=== PATIENT | female | born 1990 | race Two or more races ===

== ENCOUNTER 2024-05-23 07:59 | Emergency (ER) | payer OTHER ==
[~2024-05-23] VITALS: Ht 175.3 cm; Wt 70.8 kg
[2024-05-23] MEDS ORDERED: LEVOTHYROXINE50 MCG PO (08:56)
[2024-05-23] MEDS ORDERED: IRON236 MG PO (08:56)
[2024-05-23 10:51] LABS: HEMATOCRIT 34.9 % (36.0-45.00); MEAN CELL VOLUME 88.8 fL (80.00-100.00); MEAN CORPUSCULAR HEMOGLOBIN 30.6 pg (27.00-32.0); MEAN CORPUSCULAR HGB CONC 34.4 g/dl (32.0-36.0); PLATELET COUNT 373 K/uL (150-450); RED BLOOD COUNT 3.93 M/uL (4.00-6.00); RED CELL DISTRIBUTION WIDTH 13.4 % (11.5-14.5)
[2024-05-23 10:56] LABS: ERYTHROCYTE SEDIMENTATION RATE 88 mm/hr
[2024-05-23 11:28] LABS: PH,URINE 5.5 (5.0-8.0); URINE APPEARANCE Clear; URINE BILIRRUBIN Negative (NEGATIVE); URINE BLOOD Large; URINE COLOR Yellow; URINE GLUCOSE Negative (NEGATIVE); URINE KETONE Negative (NEGATIVE); URINE LEUKOCYTE Small; URINE NITRATE Negative; URINE PROTEIN Negative (NEGATIVE); URINE UROBILINOGEN 0.2 E.U./dl
[2024-05-23 11:29] LABS: URINE BACTERIA 134.6 uL (0.0-1933); URINE EPITHELIAL CELLS 15.3 uL (0.0-38.8); URINE RBC 432.4 uL (0.0-20.8); URINE WBC 37.5 uL (0.0-23.2)
[2024-05-23 11:34] LABS: ALBUMIN 3.1 gm/dL (3.4-5.0); BILIRUBIN TOTAL 0.7 mg/dL (0.3-1.2); C-REACTIVE PROTEIN 1.35 MG/DL (0.00-0.29); CALCIUM 8.9 mg/dL (8.5-10.1); CREATININE SERUM 0.38 mg/dL (0.55-1.02); GFR 196.26; POTASSIUM 4.1 mEq/L (3.5-5.1); TOTAL PROTEIN 7.1 gm/dL (6.4-8.2)
[2024-05-23 12:05] LABS: URINE CAST 0.29 uL (0.0-1.40)
[2024-05-23] MEDS ORDERED: MACROBID 100 M100 MG PO (13:01)
== END 2024-05-23 13:07 | disposition home or self-care (01) ==
LOC: ER 08:02
PROVIDERS: Preventive Medicine Public Health & General Preventive Medicine
DX: N39.0 Urinary tract infection, site not specified (principal); R60.0 Localized edema; E03.8 Other specified hypothyroidism